=== PATIENT | male | born 1985 | race Asian ===

== ENCOUNTER 2021-08-22 23:48 | Emergency (ER) | payer OTHER ==
[~2021-08-22] VITALS: Ht 175.3 cm; Wt 95.3 kg
[2021-08-23 00:13] VITALS: BP_SYST 164
[2021-08-23 00:51] LABS: BILIRUBIN,URINE 1+ (NEGATIVE); BLOOD, URINE 3+ (NEGATIVE); CLARITY/URINE CLOUDY (CLEAR); COLOR,URINE RED (YELLOW); GLUCOSE,URINE NEGATIVE (NEGATIVE); KETONES,URINE 1+ (NEGATIVE); LEUKOCYTE ESTERASE ,URINE TRACE (NEGATIVE); NITRITE, URINE POSITIVE (NEGATIVE); PROTEIN URINE 2+ (NEGATIVE)
[2021-08-23 01:02] LABS: BACTERIA,URINE MODERATE /HPF (None Seen); RBC,URINE >100 /HPF (0-3); WBC,URINE >100 /HPF (0-3); YEAST,URINE Many /HPF (None Seen)
[2021-08-23] MEDS ORDERED: cefTRIAXone 1 GM in LIDOCAINE 1%, 20 ML MDV 2.1 ML IM ONE (01:30)
[2021-08-23] MEDS ORDERED: CIPR500T5 PO (01:33)
[2021-08-23 01:50] VITALS: BP_SYST 145
== END 2021-08-23 01:58 | disposition home or self-care (01) ==
LOC: SED 23:48
DX: N39.0 Urinary tract infection, site not specified (principal); Z79.899 Other long term (current) drug therapy
CPT/HCPCS: 81000; 87086; 96372; 99283; J0696; J2001